=== PATIENT | male | born 1945 | race Caucasian/White ===

== ENCOUNTER 2023-06-11 15:44 | Emergency (ER) | payer MEDICARE, SELFPAY ==
[2023-06-11 15:55] VITALS: BP 93/62; PULSE 78; RESP 18; TEMP 36.5; O2SAT 97; BMI 18.8
--- NOTE | 2023-06-11 16:03 | CT_ITS ---
The [address] [address] Patient Name: ANDREA RODRIGUES MRN: [id number] date: 1945 Sex: M Assigned Patient Location: ER Current Patient Location: ER Accession/Order Number: [id number] Exam Date: 06/11/2023 16:15 Report Date: 06/11/2023 17:33 At the request of: ARABELLA AGOSTO Procedure: CT head/brain wo con EXAM: CT head/brain wo con COMPARISON: None available. CLINICAL INFORMATION: Visual change. TECHNIQUE: Axial noncontrast images were obtained through the brain and reconstructed using brain and bone algorithms with sagittal and coronal reconstructions. Dose reduction techniques were achieved by using automated exposure control and/or adjustment of mA and/or kV according to patient size and/or use of iterative reconstruction technique. FINDINGS: BRAIN: No intracranial hemorrhage. No extra-axial collection. No mass or mass effect. No midline shift. 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 Otherwise rajput-white matter differentiation preserved in age-appropriate chronic microvascular ischemic change. Dense carotid calcifications. CSF: Ventricles and sulci appropriate for age. Basal cisterns are patent. ORBITS: Prior cataract surgery. SINUSES AND MASTOID AIR CELLS: Trace bubbles of gas in the left sphenoid sinus. Paranasal sinuses otherwise clear. Nonspecific right greater than left mastoid effusions and right middle ear effusion. BONES: No acute osseous abnormality. SOFT TISSUES: Unremarkable. CT/CT head/brain wo con IMPRESSION: 1. 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 Will be further evaluated on same-day scheduled CT angiography head-neck exam. Further evaluation with MRI could also be considered. No priors available for comparison. 2. No acute intracranial hemorrhage. 3. Nonspecific right greater than left mastoid effusions and right middle ear effusion. Electronically authenticated by: NAHID THURMAN Date: 06/11/2023 17:33
--- NOTE | 2023-06-11 16:43 | ED.EYEPROB1 ---
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 he said the area affected becomes bernabe and then clears up. Then another area becomes affected. This has been occurring for about 10 days. he denied any associated headache, eye pain, discharge or URI symptoms. No chest pain, palpitations, neurological deficits associated with these eye changes. He said that Dr Velasquez dilated the patient's right eye and the retina and rest of the eye looked ok . he has an appointment with the retinal specialist in a few weeks. Related Data Home Medications Medication Instructions Recorded Confirmed No Known Home Medications 06/11/23 06/11/23 Allergies Allergy/AdvReac Type Severity Reaction Status Date / Time No Known Drug Allergies Allergy Verified 06/11/23 15:58 Exam Narrative Exam Narrative: Nurses notes and vital signs reviewed and patient is not hypoxic. afebrile General: Well-appearing and in no apparent distress. Skin: Warm, dry, no pallor noted. No rash. Head: Normocephalic, atraumatic. Neck: Supple, non-tender. Eye: Pupils are equal, round and EOMI. No scleral icterus. Ears, Nose, Mouth, and Throat: Oral mucosa is moist Cardiovascular: Regular Rate and Rhythm without murmur, gallop or rub. Respiratory: No accessory muscle use or respiratory distress. Lungs are clear to auscultation, no wheezing, rales or rhonchi Musculoskeletal: normal ROM Neurological: A&O x4. No cranial nerve dysfunction observed. No truncal ataxia. Moves all extremities. Sensation intact. Psychiatric: Cooperative and interactive. Normal mood and affect. Constitutional Vital Signs, click to edit/add: Last Vital Signs Temp 97.7 F 06/11/23 15:55 Pulse 63 06/11/23 18:08 Resp 16 06/11/23 18:08 BP 130/84 H 06/11/23 18:08 Pulse Ox 98 06/11/23 18:08 O2 Del Method Room Air 06/11/23 15:55 Course Vital Signs Vital signs: Vital Signs Temperature 97.7 F 06/11/23 15:55 Pulse Rate 78 06/11/23 15:55 Respiratory Rate 18 06/11/23 15:55 Blood Pressure 93/62 06/11/23 15:55 Pulse Oximetry 97 06/11/23 15:55 Oxygen Delivery Method Room Air 06/11/23 15:55 Temperature 97.7 F 06/11/23 15:55 Pulse Rate 63 06/11/23 18:08 Respiratory Rate 16 06/11/23 18:08 Blood Pressure 130/84 H 06/11/23 18:08 Pulse Oximetry 98 06/11/23 18:08 Oxygen Delivery Method Room Air 06/11/23 15:55 MDM - Eye Problem MDM Narrative Medical decision making narrative: the patient presents with intermittent, transient visual decrease in regions of the right eye that seem to affect different areas at a time. Concern for retinal artery occlusion. He has history of stenting of the right carotid artery. Therefore he was sent for non-contrast CT scanning of the brain followed by CT angiogram of the head and neck. Non-contrast head CT, per radiologist, revealed age-indeterminate, possibly subacute, right frontal infarct. However, the CTA head and neck are read by the radiologist as being absent for large vessel occlusion or significant intracranial stenosis. He has some stenosis in the previously stented right carotid artery. Results shared with the patient and he was discharged home. He will keep his appointment with the retinal specialist as scheduled. Imaging Data CT scan - head: Radiologist's impression: Patient Name: ANDREA RODRIGUES MRN: [id number] date: 1945 Sex: M Assigned Patient Location: Current Patient Location: Accession/Order Number: [id number] Exam Date: 06/11/2023 16:15 Report Date: 06/11/2023 17:33 At the request of: ARABELLA AGOSTO Procedure: CT head/brain wo con EXAM: CT head/brain wo con COMPARISON: None available. CLINICAL INFORMATION: Visual change. TECHNIQUE: Axial noncontrast images were obtained through the brain and reconstructed using brain and bone algorithms with sagittal and coronal reconstructions. Dose reduction techniques were achieved by using automated exposure control and/or adjustment of mA and/or kV according to patient size and/or use of iterative reconstruction technique. FINDINGS: BRAIN: No intracranial hemorrhage. No extra-axial collection. No mass or mass effect. No midline shift. 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 Otherwise rajput-white matter differentiation preserved in age-appropriate chronic microvascular ischemic change. Dense carotid calcifications. CSF: Ventricles and sulci appropriate for age. Basal cisterns are patent. ORBITS: Prior cataract surgery. SINUSES AND MASTOID AIR CELLS: Trace bubbles of gas in the left sphenoid sinus. Paranasal sinuses otherwise clear. Nonspecific right greater than left mastoid effusions and right middle ear effusion. BONES: No acute osseous abnormality. SOFT TISSUES: Unremarkable. IMPRESSION: 1. 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 Will be further evaluated on same-day scheduled CT angiography head-neck exam. Further evaluation with MRI could also be considered. No priors available for comparison. 2. No acute intracranial hemorrhage. 3. Nonspecific right greater than left mastoid effusions and right middle ear effusion. Electronically authenticated by: NAHID THURMAN Date: 06/11/2023 17:33 cta head and neck: Radiologist's impression: Patient Name: ANDREA RODRIGUES MRN: [id number] date: 1945 Sex: M Assigned Patient Location: ER Current Patient Location: Accession/Order Number: [id number] Exam Date: 06/11/2023 17:10 Report Date: 06/11/2023 18:52 At the request of: ARABELLA AGOSTO Procedure: CT angio head EXAM: CT angio neck, CT angio head HISTORY: Difficulty of seeing from the right eye for weeks. COMPARISON: Head CT without contrast on 06/11/2023. TECHNIQUE: Following IV administration of iodinated contrast, axial CT scans of the head and neck were obtained. MPR and MIP images images were obtained. Carotid stenosis is based on NASCET criteria. Dose reduction techniques were achieved by using automated exposure control and/or adjustment of mA and/or kV according to patient size and/or use of iterative reconstruction technique. FINDINGS: CTA OF THE HEAD: No major branch occlusion or significant intracranial stenosis. origins of the posterior cerebral arteries with severely hypoplastic left P1. The right V4 distal to the right PICA is severely hypoplastic. No aneurysm. CTA OF THE NECK: No abnormal soft tissue mass in in the neck. Severe centrilobular emphysema. No destructive bony lesions. The aortic arch and proximal great vessels of the aortic arch are not included on this CTA of the neck. Vertebral arteries show no significant stenosis or dissection. The visualized left common carotid and left cervical internal carotid show no significant stenosis. A stent in the distal right common carotid and proximal right internal carotid is present. A densely calcified plaque in the proximal right internal carotid exerts mass effect on the stent with resultant about 50% diameter stenosis with the stented portion measuring about 2.2 mm in diameter and the normal distal segment, 4.5 mm. In addition, intimal hyperplasia in the distal common carotid and proximal right internal carotid is present. There is about 60% diameter stenosis in the stented proximal right internal carotid just distal to the densely calcified plaque with the stenotic segment measuring about 1.7 mm and the normal distal segment, 4.5 mm. IMPRESSION: No large vessel occlusion or significant intracranial stenosis. A stent in the distal right common carotid and proximal right internal carotid is present. A densely calcified plaque in the proximal right internal carotid exerts mass effect on the stent with resultant about 50% diameter stenosis with the stented portion measuring about 2.2 mm in diameter and the normal distal segment, 4.5 mm. In addition, intimal hyperplasia in the distal common carotid and proximal right internal carotid is present. There is about 60% diameter stenosis in the stented proximal right internal carotid just distal to the densely calcified plaque with the stenotic segment measuring about 1.7 mm and the normal distal segment, 4.5 mm. The aortic arch and proximal great vessels of the aortic arch are not included on this CTA of the neck. Vertebral arteries show no significant stenosis or dissection. The visualized left common carotid and left cervical internal carotid show no significant stenosis. Electronically authenticated by: ROSE MARIE JONES Date: 06/11/2023 18:52 Discharge Plan Discharge Chief Complaint: Eye Problems Clinical Impression: Changes in vision Patient Disposition: Home, Self-Care Time of Disposition Decision: 18:58 Prescriptions / Home Meds: No Action No Known Home Medications Instructions: Blurred Vision (ED) Stand Alone Forms: Portal Instructions Referrals: Physician,Non-Staff, MD [Primary Care Provider] - 1 week
[2023-06-11 17:04] VITALS: BP 100/61; PULSE 72; RESP 16; O2SAT 98
--- NOTE | 2023-06-11 17:15 | CT_ITS ---
The [address] [address] Patient Name: ANDREA RODRIGUES MRN: [id number] date: 1945 Sex: M Assigned Patient Location: ER Current Patient Location: Accession/Order Number: [id number] Exam Date: 06/11/2023 17:10 Report Date: 06/11/2023 18:52 At the request of: ARABELLA AGOSTO Procedure: CT angio neck EXAM: CT angio neck, CT angio head HISTORY: Difficulty of seeing from the right eye for weeks. COMPARISON: Head CT without contrast on 06/11/2023. TECHNIQUE: Following IV administration of iodinated contrast, axial CT scans of the head and neck were obtained. MPR and MIP images images were obtained. Carotid stenosis is based on NASCET criteria. Dose reduction techniques were achieved by using automated exposure control and/or adjustment of mA and/or kV according to patient size and/or use of iterative reconstruction technique. FINDINGS: CTA OF THE HEAD: No major branch occlusion or significant intracranial stenosis. origins of the posterior cerebral arteries with severely hypoplastic left P1. The right V4 distal to the right PICA is severely hypoplastic. No aneurysm. CTA OF THE NECK: No abnormal soft tissue mass in in the neck. Severe centrilobular emphysema. No destructive bony lesions. The aortic arch and proximal great vessels of the aortic arch are not included on this CTA of the neck. Vertebral arteries show no significant stenosis or dissection. The visualized left common carotid and left cervical internal carotid show no significant stenosis. A stent in the distal right common carotid and proximal right internal carotid is present. A densely calcified plaque in the proximal right internal carotid exerts mass effect on the stent with resultant about 50% diameter stenosis with the stented portion measuring about 2.2 mm in diameter and the normal distal segment, 4.5 mm. In addition, intimal hyperplasia in the distal common carotid and proximal right internal carotid is present. There is about 60% diameter stenosis in the stented proximal right internal carotid just distal to the densely calcified plaque with the stenotic segment measuring about 1.7 mm and the normal distal segment, 4.[address]/CT angio neck IMPRESSION: No large vessel occlusion or significant intracranial stenosis. A stent in the distal right common carotid and proximal right internal carotid is present. A densely calcified plaque in the proximal right internal carotid exerts mass effect on the stent with resultant about 50% diameter stenosis with the stented portion measuring about 2.2 mm in diameter and the normal distal segment, 4.5 mm. In addition, intimal hyperplasia in the distal common carotid and proximal right internal carotid is present. There is about 60% diameter stenosis in the stented proximal right internal carotid just distal to the densely calcified plaque with the stenotic segment measuring about 1.7 mm and the normal distal segment, 4.5 mm. The aortic arch and proximal great vessels of the aortic arch are not included on this CTA of the neck. Vertebral arteries show no significant stenosis or dissection. The visualized left common carotid and left cervical internal carotid show no significant stenosis. Electronically authenticated by: ROSE MARIE JONES Date: 06/11/2023 18:52
--- NOTE | 2023-06-11 17:15 | CT_ITS ---
The [address] [address] Patient Name: ANDREA RODRIGUES MRN: [id number] date: 1945 Sex: M Assigned Patient Location: ER Current Patient Location: Accession/Order Number: [id number] Exam Date: 06/11/2023 17:10 Report Date: 06/11/2023 18:52 At the request of: ARABELLA AGOSTO Procedure: CT angio head EXAM: CT angio neck, CT angio head HISTORY: Difficulty of seeing from the right eye for weeks. COMPARISON: Head CT without contrast on 06/11/2023. TECHNIQUE: Following IV administration of iodinated contrast, axial CT scans of the head and neck were obtained. MPR and MIP images images were obtained. Carotid stenosis is based on NASCET criteria. Dose reduction techniques were achieved by using automated exposure control and/or adjustment of mA and/or kV according to patient size and/or use of iterative reconstruction technique. FINDINGS: CTA OF THE HEAD: No major branch occlusion or significant intracranial stenosis. origins of the posterior cerebral arteries with severely hypoplastic left P1. The right V4 distal to the right PICA is severely hypoplastic. No aneurysm. CTA OF THE NECK: No abnormal soft tissue mass in in the neck. Severe centrilobular emphysema. No destructive bony lesions. The aortic arch and proximal great vessels of the aortic arch are not included on this CTA of the neck. Vertebral arteries show no significant stenosis or dissection. The visualized left common carotid and left cervical internal carotid show no significant stenosis. A stent in the distal right common carotid and proximal right internal carotid is present. A densely calcified plaque in the proximal right internal carotid exerts mass effect on the stent with resultant about 50% diameter stenosis with the stented portion measuring about 2.2 mm in diameter and the normal distal segment, 4.5 mm. In addition, intimal hyperplasia in the distal common carotid and proximal right internal carotid is present. There is about 60% diameter stenosis in the stented proximal right internal carotid just distal to the densely calcified plaque with the stenotic segment measuring about 1.7 mm and the normal distal segment, 4.[address]/CT angio head IMPRESSION: No large vessel occlusion or significant intracranial stenosis. A stent in the distal right common carotid and proximal right internal carotid is present. A densely calcified plaque in the proximal right internal carotid exerts mass effect on the stent with resultant about 50% diameter stenosis with the stented portion measuring about 2.2 mm in diameter and the normal distal segment, 4.5 mm. In addition, intimal hyperplasia in the distal common carotid and proximal right internal carotid is present. There is about 60% diameter stenosis in the stented proximal right internal carotid just distal to the densely calcified plaque with the stenotic segment measuring about 1.7 mm and the normal distal segment, 4.5 mm. The aortic arch and proximal great vessels of the aortic arch are not included on this CTA of the neck. Vertebral arteries show no significant stenosis or dissection. The visualized left common carotid and left cervical internal carotid show no significant stenosis. Electronically authenticated by: ROSE MARIE JONES Date: 06/11/2023 18:52
[2023-06-11 18:08] VITALS: BP 130/84; PULSE 63; RESP 16; O2SAT 98
[2023-06-11 18:56] VITALS: BP 152/83; PULSE 61; RESP 14; O2SAT 99
== END 2023-06-11 19:12 | disposition home or self-care (01) ==
PROVIDERS: Emergency Provider Emergency Medicine
DX: H53.8 Other visual disturbances (principal)
CPT/HCPCS: 70450; 70496; 70498; 99284; Q9967

== ENCOUNTER 2023-06-14 12:14 | Outpatient (OUT) | payer MEDICARE, SELFPAY ==
[2023-06-14 12:32] LABS: Basophils Absolute Auto 0.1 10^3/uL (0.0-0.1); Eosinophils Absolute Auto 0.1 10^3/uL (0.0-0.7); Hemoglobin 14.3 g/dL (14.0-18.0); Immature Granulocytes Abs Auto 0.03 10^3/uL (0.00-0.03); Immature Granulocytes Pct Auto 0.3 % (0.0-0.5); Lymphocytes Absolute Auto 1.9 10^3/uL (1.2-3.8); Lymphocytes Percent Auto 19.6 % (20.5-60.0); Mean Platelet Volume 8.9 fL (9.5-13.5); Monocytes Percent Auto 10.6 % (1.7-12.0); Neutrophils Absolute Auto 6.5 10^3/uL (1.4-6.5); Neutrophils Percent Auto 67.5 % (43.0-75.0); Platelet Count 303 10^3/uL (150-450); Red Blood Count 4.33 10^6/uL (4.70-6.10); Red Cell Distribution Width 14.6 % (11.0-15.0); White Blood Count 9.6 10^3/uL (4.0-11.0)
[2023-06-14 12:38] LABS: Erythrocyte Sedimentation Rate 23 mm/hr (<=20)
[2023-06-14 12:48] LABS: C Reactive Protein <0.2 mg/dL (<=1.0)
== END 2023-06-14 12:15 | disposition home or self-care (01) ==
DX: G45.3 Amaurosis fugax (principal)
CPT/HCPCS: 36415; 85025; 85652; 86140

== ENCOUNTER 2025-11-14 14:29 | Emergency (ER) | payer MEDICARE, SELFPAY ==
[2025-11-14 14:39] VITALS: BP 150/82; PULSE 72; TEMP 36.5; O2SAT 98; BMI 18.3
--- OUTSIDE RECORDS SUMMARY | 2025-11-14 15:13 | XMS_ITS | Clinical Summary ---
Author Organization [facility] Address [address] [facility] [place] [address] Care Team Providers Care Driver/Guide Name Role Phone Unavailable Primary Care Provider Unavailabl e Source Comments The following information is NOT included in Care Everywhere downloads:Psychiatric notes, ECG results, Cardiac Rehab notes, Pulmonary Function notes, data from SmartForms (includes but not limited toPregnancy data,audiograms, eye exams, pre-surgical evaluation notes, well-child exam data).[facility] Medications No known medications Active Problems ProblemNoted DateDiagnosed DateClosed fracture of tetysbqwj34/09/2007 Overview (03/04/2019): LALI-CLOSED FRACTURE OF CALCANEUS [id number] LALI HEELS/FEET. 784175 Contusion of foot04/03/2007 Overview (03/04/2019): LALI-CONTUSION OF FOOT 345862 LALI HEELS/FEET. [id number] Social History Tobacco UseTypesPacks/DayYears UsedDateSmoking Tobacco: Never AssessedSex and Gender InformationValueDate RecordedSex Assigned at BirthNot on fileLegal Sex Male09/29/2012 12:28 PM ESTGender IdentityNot on fileSexual OrientationNot on file Plan of Treatment Health MaintenanceDue DateLast DoneCommentsTdap Sxokoww1501/06/1961Hepatitis A (HAV) Vaccine (optional start 19+ years)1962Tetanus (Td or Tdap) Booster 2Pneumococcal Vaccine(s) (50+ yrs) (1 of 1 - PCV)1993Shingles (RZV) Vaccine (1 of 2)1993Hepatitis B (HBV) Vaccine (optional start 60+ years)2003RSV vaccine (adult) (1 - 1-dose 75+ series)2018COVID-19 Vaccine (2024-26 season)2025Influenza Vaccine (#1)2025 Insurance MemberSubscriberPlan / Payer (Effective 2007-Present)Name:Chevy Banks Relation to Subscriber:SelfName:Chevy Banks Payer ID:Not on file Group ID:Not on file Type:Worker's Comp x2 Address: [address] [place] [address]
--- NOTE | 2025-11-14 15:22 | ED.EAR1 ---
HPI - Ear Problem General Chief complaint: Ear Stated complaint: TROUBLE W HEARING Time Seen by Provider: 11/14/25 14:58 Source: patient Mode of arrival: walk-in Limitations: no limitations History of Present Illness HPI Narrative: 80-year-old male presents to the ER with concerns of bilateral hearing loss. 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 He denies any pain or discomfort he denies any dizziness or headache. Patient states he tried some hydrogen peroxide at home but could not get any earwax out. Patient states he has had this before. His daughter is present at the bedside and reports no other concerns and then trying to clean out his ears so that he can hear better. MD Complaint: Reports decreased hearing Location: bilateral Duration: constant Treatment prior to arrival: Reports attempt at ear wax removal Related Data Home Medications ?Medication ?Instructions ?Recorded ?Confirmed No Known Home Medications 06/11/23 06/11/23 Allergies Allergy/AdvReac Type Severity Reaction Status Date / Time No Known Drug Allergies Allergy Verified 11/14/25 14:39 Review of Systems ROS Constitutional Denies: fever or chills Eyes Denies: change in vision Ears, nose, mouth, and throat Denies: throat pain or neck pain Cardiovascular Denies: chest pain or edema Respiratory Denies: shortness of breath, cough or wheezing Gastrointestinal Denies: abdominal pain, nausea or vomiting Genitourinary Denies: painful urination Musculoskeletal Denies: extremity pain Integumentary/Breast Denies: rash Neurological Denies: headache or dizziness PFSH PFSH Social History Little interest or pleasure in doing things: not at all Feeling down, depressed, or hopeless: not at all Exam Narrative Exam Narrative: Nurse's notes and vital signs reviewed and patient is not hypoxic. General: The patient appears well and in no apparent distress. Patient is resting comfortably in cart. Skin: Warm, dry, no pallor noted. Head: Normocephalic, atraumatic Neck: Supple, trachea midline, no tenderness, no lymphadenopathy Ears, nose, mouth, and throat: No auricle or tragal tenderness, patient has bilateral cerumen impaction. Oral mucosa is moist, no posterior oropharynx erythema or hypertrophy, uvula is midline Cardiovascular: Regular rate and rhythm Respiratory: Patient is in no distress, no accessory muscle use, lungs are clear to auscultation, no wheezing, rales, or rhonchi. Chest wall: No tenderness Neurological: Alert and oriented ?4 Psychiatric: Cooperative Constitutional Vital Signs, click to edit/add: Last Vital Signs Temp 97.7 F 11/14/25 14:39 Pulse 72 11/14/25 14:39 Resp 15 11/14/25 14:39 BP 150/82 H 11/14/25 14:39 Pulse Ox 98 11/14/25 14:39 O2 Del Method Room Air 11/14/25 14:39 Course Vital Signs Vital signs: Vital Signs Temperature 97.7 F 11/14/25 14:39 Pulse Rate 72 11/14/25 14:39 Respiratory Rate 15 11/14/25 14:39 Blood Pressure 150/82 H 11/14/25 14:39 Pulse Oximetry 98 11/14/25 14:39 Oxygen Delivery Method Room Air 11/14/25 14:39 Temperature 97.7 F 11/14/25 14:39 Pulse Rate 72 11/14/25 14:39 Respiratory Rate 15 11/14/25 14:39 Blood Pressure 150/82 H 11/14/25 14:39 Pulse Oximetry 98 11/14/25 14:39 Oxygen Delivery Method Room Air 11/14/25 14:39 Medical Decision Making MDM Narrative Medical decision making narrative: Pleasant 80-year-old male with history of being hard of hearing in the right ear, concerned that he cannot hear hardly at all with bilateral cerumen impactions. Patient verbally agreeable to ear canal irrigation. Risks and benefits of procedure discussed and patient verbally excepting with his daughter at bedside. Patient had irrigation with warm water and hydrogen peroxide 50-50 mix using a syringe for lavage with complete removal of cerumen in bilateral ears. No auricle or tragal tenderness was noted and the TMs were both visualized to be intact pearly rajput without inflammation. No middle ear effusion was appreciated. Patient notes that he could hear some out of his right ear which he could not do before however it is not the same as the hearing in his left ear. Patient notes that his left ear feels back to normal. We discussed home care for his ears The patient is to followup with primary care physician in next 5-7 days or to return to the emergency department should any of the signs or symptoms worsen or new symptoms develop. Patient had questions answered. The patient agrees with the following Diagnosis and Treatment plan and the patient will be discharged home. Discharge Plan Discharge Chief Complaint: Ear Clinical Impression: Bilateral hearing loss due to cerumen impaction, Bilateral impacted cerumen Patient Disposition: Home, Self-Care Time of Disposition Decision: 15:23 Condition: Good Prescriptions / Home Meds: No Action No Known Home Medications Print Language: [place] Instructions: Carbamide Peroxide (Into the ear) (Guest Services Manager's Choice, [employer],... Referrals: DEBORAH HILL [Physician, Family Practice] - 1 week
[2025-11-14 15:31] VITALS: BP 148/83; PULSE 81; O2SAT 98
== END 2025-11-14 15:32 | disposition home or self-care (01) ==
PROVIDERS: Emergency Provider Emergency Medicine; PCP Family Medicine
DX: H61.23 Impacted cerumen, bilateral (principal)
CPT/HCPCS: 69209; 99281